=== PATIENT | female | born 1975 | race Caucasian/White ===

== ENCOUNTER 2022-04-10 10:10 | Outpatient (CLI) | payer BC ==
[2022-04-10] MEDS ORDERED: Magnevist 469MG/ML 20 ML VIAL ONE (13:34)
== END 2022-04-10 10:11 | disposition home or self-care (01) ==
LOC: CSHMRI 10:10
PROVIDERS: ATTEND Internal Medicine
DX: K50.90 Crohn's disease, unspecified, without complications (principal); K31.84 Gastroparesis; D50.9 Iron deficiency anemia, unspecified
CPT/HCPCS: 74183; A9579; J1610